=== PATIENT | female | born 1940 | race Caucasian/White ===

== ENCOUNTER 2023-07-14 07:52 | Day surgery (SDC) | payer MEDICARE, OTHER ==
[~2023-07-14] VITALS: Ht 162.6 cm; Wt 113.6 kg
[~2023-07-14 07:52] MED LIST: BALANCED SALT 15 ML OPHTHALMIC IRRIG.SOLN ONE; EPINEPHrine 1:1,000 [1 MG/ML] VIAL ONE; FURO20TA4 PO; KETOROLAC TROMETHAMINE 0.5% 5 ML OPHTHALMIC SOLUTION ONE; LIDOCAINE/PF 1% 2 ML VIAL ONE; LOSA-382 PO; METO25 PO; MOXIFLOXACIN HCL 0.5% 3 ML OPHTHALMIC SOLUTION ONE; PHENYLEPHRINE HCL 2.5% 2 ML OPHTHALMIC SOLUTION ONE; POTA-92 PO; POVIDONE-IODINE 5% 30 ML OPHTHALMIC SOLUTION ONE; RINGERS SOLUTION,LACTATED 500 ML IV ONE; SIMV-43 PO; TETRACAINE HCL/PF 0.5% 4 ML OPHTHALMIC SOLUTION ONE; TROPICAMIDE 1% 2 ML OPHTHALMIC SOLUTION ONE
[2023-07-14] MEDS ORDERED: HYALURONATE SOD/CHONDROITIN SOD 0.5 ML VIAL IO ONE (07:53)
[2023-07-14] MEDS ORDERED: FentaNYL CITRATE PF 100 MCG/2 ML VIAL IVP ONE (07:53)
[2023-07-14] MEDS ORDERED: HYALURONATE SOD 8.5MG/0.85ML 10 MG/ML SYRINGE IO ONE (07:53)
[2023-07-14] MEDS ORDERED: CHONDR SULF A SOD/HYALURONATE 1.05 ML KIT IO ONE (07:53)
[2023-07-14] MEDS ORDERED: MIDAZOLAM HCL 2 MG/2 ML VIAL IVP ONE (07:53)
[2023-07-14] MEDS: KETOROLAC TROMETHAMINE 0.5% 5 ML OPHTHALMIC SOLUTION OS SCH ×3 (08:19→08:28)
[2023-07-14] MEDS: PHENYLEPHRINE HCL 2.5% 2 ML OPHTHALMIC SOLUTION OS SCH ×3 (08:19→08:28)
[2023-07-14] MEDS: TROPICAMIDE 1% 2 ML OPHTHALMIC SOLUTION OS SCH ×3 (08:19→08:28)
[2023-07-14] MEDS ORDERED: RINGERS SOLUTION,LACTATED 500 ML IV ONE (09:00)
[2023-07-14] MEDS ORDERED: MOXIFLOXACIN HCL 0.5% 3 ML OPHTHALMIC SOLUTION OS SCH (10:00)
== END 2023-07-14 10:00 | disposition home or self-care (01) ==
LOC: SURGERY 07:52
PROVIDERS: ATTEND Ophthalmology
DX: H25.12 Age-related nuclear cataract, left eye (principal); I10 Essential (primary) hypertension; Z79.899 Other long term (current) drug therapy; Z90.710 Acquired absence of both cervix and uterus; Z90.49 Acquired absence of other specified parts of digestive tract; Z88.6 Allergy status to analgesic agent; Z88.8 Allergy status to other drugs, medicaments and biological substances; Z98.890 Other specified postprocedural states; Z87.01 Personal history of pneumonia (recurrent)
CPT/HCPCS: 66984; 93005; J0171; J3010; J3490; J2250; Q9967; J7120; V2632